=== PATIENT | male | born 1965 | race American Indian/Alaskan Native ===

== ENCOUNTER 2016-12-09 22:11 | Emergency (ER) | payer MEDICAID ==
[2016-12-09 22:58] LABS: Basophils % (Auto) 0.8 % (0.0-1.8); Hematocrit 46.1 % (35.5-45.6); Hemoglobin 15.2 gm/dl (11.8-15.2); Mean Corpuscular HGB Conc 33 % (32-34); Mean Corpuscular Hemoglobin 30 pg (28-32); Mean Corpuscular Volume 92 fl (84-94); Platelet Count 292 K/mm3 (140-440); Red Blood Count 4.99 M/mm3 (3.65-5.03); Red Cell Distribution Width 13.4 % (13.2-15.2); White Blood Count 12.7 K/mm3 (4.5-11.0)
[2016-12-09 23:04] LABS: Bilirubin,Urine NEG (Negative); Blood,Urine NEG (Negative); Ketones,Urine NEG (Negative); Leukocyte Esterase,Urine NEG (Negative); Mucus,Urine FEW /HPF; Nitrite,Urine NEG (Negative); Protein,Urine <15 mg/dL mg/dL (Negative); Urobilinogen,Urine < 2.0 mg/dL (<2.0); WBC,Urine < 1.0 /HPF (0.0-6.0)
[2016-12-09] MEDS ORDERED: REGLAN IV ONE (23:14)
[2016-12-09] MEDS ORDERED: ZOFRAN IV ONE (23:14)
[2016-12-09] MEDS ORDERED: NACL 0.9% 1000 ML 1,000 ML IV ONE (23:14)
[2016-12-09 23:18] LABS: Anion Gap 19 mmol/L; BUN/Creatinine Ratio 13.75; Blood Urea Nitrogen 11 mg/dL (9-20); Calcium 8.6 mg/dL (8.4-10.2); Carbon Dioxide 23 mmol/L (22-30); Chloride 101.3 mmol/L (98-107); Glucose 95 mg/dL (75-100); Potassium 3.9 mmol/L (3.6-5.0); Sodium 139 mmol/L (137-145)
--- NOTE | 2016-12-09 23:34 | Emergency Department Report ---
ED N/V/D HPI - General Chief complaint: Nausea/Vomiting/Diarrhea Stated complaint: N/V/D X 3 DAYS Time Seen by Provider: 12/09/16 23:14 Source: patient, family, EMS Mode of arrival: Stretcher Limitations: Physical Limitation - History of Present Illness MD complaint: nausea, vomiting, abdominal pain -: Gradual Description of Vomiting: food contents, watery, bilious Associated Abdominal Pain: Yes Location: diffuse Radiation: none Severity: moderate Pain Scale: 5 Quality: cramping Consistency: intermittent Improves with: none Worsens with: none Context: possible food poisoning Associated Symptoms: nausea/vomiting. denies: myalgias, chest pain, cough, diaphoresis, fever/chills, headaches, loss of appetite, malaise, rash, dysuria, shortness of breath, syncope - Related Data Previous Rx's Medication Instructions Recorded Last Taken Type Ondansetron [Zofran ODT TAB] 8 mg PO Q8HR #20 tab.rapdis 12/10/16 Unknown Rx Allergies Allergy/AdvReac Type Severity Reaction Status Date / Time No Known Allergies Allergy Verified 01/20/16 16:24 ED Review of Systems ROS: Stated complaint: N/V/D X 3 DAYS Other details as noted in HPI Comment: All other systems reviewed and negative ED Past Medical Hx - Past Medical History Hx CVA: Yes (2012, no meds) Hx Heart Attack/AMI: Yes Hx GERD: Yes Additional medical history: benign lung mass, NSTEMI - Surgical History Hx Cholecystectomy: Yes Additional Surgical History: collar bone surgery,right hand surgery - Social History Smoking Status: Never Smoker Substance Use Type: None - Medications Home Medications: Home Medications Medication Instructions Recorded Confirmed Last Taken Type Ondansetron [Zofran ODT TAB] 8 mg PO Q8HR #20 tab.rapdis 12/10/16 Unknown Rx ED Physical Exam - General Limitations: Physical Limitation General appearance: alert, in no apparent distress - Head Head exam: Present: atraumatic, normocephalic - Eye Eye exam: Present: normal appearance - ENT ENT exam: Present: mucous membranes moist - Neck Neck exam: Present: normal inspection - Respiratory Respiratory exam: Present: normal lung sounds bilaterally. Absent: respiratory distress - Cardiovascular Cardiovascular Exam: Present: regular rate, normal rhythm. Absent: systolic murmur, diastolic murmur, rubs, gallop - GI/Abdominal GI/Abdominal exam: Present: soft, tenderness, normal bowel sounds. Absent: distended, guarding, rebound - Rectal Rectal exam: Present: deferred - Extremities Exam Extremities exam: Present: normal inspection - Back Exam Back exam: Present: normal inspection - Neurological Exam Neurological exam: Present: alert, oriented X3 - Psychiatric Psychiatric exam: Present: normal affect, normal mood - Skin Skin exam: Present: warm, dry, intact, normal color. Absent: rash ED Course Vital Signs 12/09/16 12/09/16 22:26 22:43 Temperature 97.5 F L Pulse Rate 81 Respiratory 18 18 Rate Blood Pressure 140/96 [Left] O2 Sat by Pulse 18 L 99 Oximetry ED Medical Decision Making - Lab Data Result diagrams: 12/09/16 22:40 12/09/16 22:40 - Medical Decision Making Patient doing well, tolerating po here in the er, labs negative except for mild elevation of lipase , he admits to drinking beer also, he had GB removed years ago, Reexamination of his abdomen shows no tenderness, no guarding , no rebound Critical care attestation.: If time is entered above; I have spent that time in minutes in the direct care of this critically ill patient, excluding procedure time. ED Disposition Clinical Impression: Vomiting, Pancreatitis Disposition: DISCHARGED TO HOME OR SELFCARE Is pt being admited?: No Does the pt Need Aspirin: No Condition: Good Instructions: Pancreatitis (ED), Acute Nausea and Vomiting (ED) Prescriptions: Ondansetron [Zofran ODT TAB] 8 mg PO Q8HR #20 tab.rapdis Referrals: PRIMARY CARE, [Primary Care Provider] - 3-5 Days Time of Disposition: :
[2016-12-10 01:31] VITALS: BP 136/86
--- NOTE | 2016-12-10 09:47 | XRay Report ---
ABDOMEN TWO VIEWS: 12/09/16 23:15:00 CLINICAL: Vomiting and diarrhea. COMPARISON:01/14/13 FINDINGS: Supine upright views demonstrate a normal bowel gas pattern. Moderate stool in the colon. No distended small bowel and no air-fluid levels. No pneumoperitoneum. No mass or suspicious calcifications. Surgical clips in the right upper quadrant. Bilateral SI joint sclerosis. IMPRESSION: Negative abdomen. Bilateral sacroiliitis.
== END 2016-12-10 01:31 | disposition home or self-care (01) ==
LOC: ED 22:11
DX: K85.90 Acute pancreatitis without necrosis or infection, unspecified (principal); R11.2 Nausea with vomiting, unspecified; I25.2 Old myocardial infarction; K21.9 Gastro-esophageal reflux disease without esophagitis; R91.8 Other nonspecific abnormal finding of lung field; Z86.73 Personal history of transient ischemic attack (TIA), and cerebral infarction without residual deficits
CPT/HCPCS: 36415; 74020; 80048; 81001; 83690; 85025; 96361; 96374; 96375; 99284; J2405; J2765; J7030

== ENCOUNTER 2017-04-02 22:15 | Emergency (ER) | payer MEDICAID ==
--- NOTE | 2017-04-02 23:11 | XRay Report ---
FINAL REPORT PROCEDURE: XR CHEST ROUTINE 2V TECHNIQUE: PA and lateral chest radiographs were obtained. CPT 34868 HISTORY: left sided rib pain COMPARISON: No prior studies are available for comparison. FINDINGS: Heart: Mild cardiomegaly. Mediastinum/Vessels: Normal. Lungs/Pleural space: Normal. Bony thorax: No acute osseous abnormality. Other: IMPRESSION: No acute pulmonary process. Mild cardiomegaly.
[2017-04-02 23:50] LABS: Basophils % (Auto) 0.5 % (0.0-1.8); Eosinophils % (Auto) 1.7 % (0.0-4.3); Hematocrit 42.8 % (35.5-45.6); Hemoglobin 14.6 gm/dl (11.8-15.2); Mean Corpuscular HGB Conc 34 % (32-34); Mean Corpuscular Hemoglobin 32 pg (28-32); Mean Corpuscular Volume 94 fl (84-94); Platelet Count 309 K/mm3 (140-440); Red Blood Count 4.56 M/mm3 (3.65-5.03); Red Cell Distribution Width 13.1 % (13.2-15.2); White Blood Count 17.5 K/mm3 (4.5-11.0)
[2017-04-02 23:56] LABS: Bilirubin,Urine NEG (Negative); Blood,Urine NEG (Negative); Ketones,Urine NEG (Negative); Leukocyte Esterase,Urine NEG (Negative); Mucus,Urine 3+ /HPF; Nitrite,Urine NEG (Negative)
[2017-04-03 00:10] LABS: Anion Gap 19 mmol/L; BUN/Creatinine Ratio 17.77; Blood Urea Nitrogen 16 mg/dL (9-20); Calcium 8.6 mg/dL (8.4-10.2); Carbon Dioxide 23 mmol/L (22-30); Chloride 99.2 mmol/L (98-107); Glucose 94 mg/dL (75-100); Potassium 3.9 mmol/L (3.6-5.0); Sodium 137 mmol/L (137-145)
[2017-04-03 00:17] LABS: INR 1.01 (0.87-1.13)
[2017-04-03 00:18] LABS: Partial Thromboplastin Time 29.7 Sec. (24.2-36.6)
[2017-04-03] MEDS ORDERED: TORADOL IM ONE (02:39)
[2017-04-03] MEDS ORDERED: AUGMENTIN 875 MG PO ONE (02:40)
--- NOTE | 2017-04-03 02:47 | Emergency Department Report ---
HPI - General Chief Complaint: Sore Throat Time Seen by Provider: 04/03/17 02:16 - HPI HPI: This is a 52-year-old Afro[place] male presents emergency Department with complaint of a one-week history of a sore throat. He denies any drooling, trismus and is able to eat and drink but has some pain with doing so. He tried some Motrin 800 mg for his symptoms with some transient relief. He also complains of some other body aches including his bilateral hips and the sides of his rib cage. He denies any chest pain, shortness of breath or any obvious fever. He has a past medical history of atrial fibrillation, CVA, GERD, coronary artery disease, hypertension. He does not have a primary care physician. No recent travel or sick contacts at home. ED Past Medical Hx - Past Medical History Previous Medical History?: Yes Hx Hypertension: Yes Hx CVA: Yes (2012, no meds) Hx Heart Attack/AMI: Yes Hx GERD: Yes Additional medical history: enlarged prostate, benign lung mass, NSTEMI - Surgical History Past Surgical History?: Yes Hx Cholecystectomy: Yes Additional Surgical History: collar bone surgery,right hand surgery - Social History Smoking Status: Former Smoker - Medications Home Medications: Home Medications Medication Instructions Recorded Confirmed Last Taken Type Ondansetron [Zofran ODT TAB] 8 mg PO Q8HR #20 tab.rapdis 12/10/16 Unknown Rx Amoxicillin/K Clav Tab [Augmentin 1 each PO BID #20 tablet 04/03/17 Unknown Rx 875MG TAB] Apixaban [Eliquis] 5 mg PO BID #60 tablet 04/03/17 Unknown Rx HYDROcodone/APAP 5-325 [Redding 1 each PO Q6HR PRN #10 tablet 04/03/17 Unknown Rx 5/325] ED Review of Systems ROS: Stated complaint: SORE THROAT/LEFT SIDE RIB PAIN Other details as noted in HPI Comment: All other systems reviewed and negative Constitutional: denies: diaphoresis, weakness Eyes: denies: eye pain, eye discharge, vision change ENT: throat pain. denies: ear pain Respiratory: denies: cough, shortness of breath Cardiovascular: denies: chest pain, palpitations Gastrointestinal: denies: abdominal pain, nausea, diarrhea Genitourinary: denies: urgency, dysuria Musculoskeletal: arthralgia Skin: denies: rash, lesions Neurological: denies: headache, weakness, paresthesias Physical Exam - Physical Exam Vital Signs: Vital Signs 04/02/17 22:26 Temperature 98.7 F Pulse Rate 62 Respiratory 18 Rate Blood Pressure 145/94 O2 Sat by Pulse 100 Oximetry Physical Exam: GENERAL: The patient is well-developed well-nourished. HEENT: Normocephalic. Atraumatic. Extraocular motions are intact. Patient has moist mucous membranes. Pupils equal reactive to light bilaterally. Oropharynx shows some mild tonsillar hypertrophy and hypervascularity but there is no obvious exudates. No drooling or trismus. NECK: Supple. Trachea is midline. CHEST/LUNGS: Clear to auscultation. There is no respiratory distress noted. HEART/CARDIOVASCULAR: Irregularly irregular ABDOMEN: Abdomen is soft, nontender. Patient has normal bowel sounds. There is no abdominal distention. SKIN: Skin is warm and dry. NEURO: The patient is awake, alert, and oriented. The patient is cooperative. The patient has no focal neurologic deficits. The patient has normal speech. Cranial nerves II through XII grossly intact. MUSCULOSKELETAL: There is no tenderness or deformity. There is no limitation range of motion. There is no evidence of acute injury. ED Course Vital Signs 04/02/17 22:26 Temperature 98.7 F Pulse Rate 62 Respiratory 18 Rate Blood Pressure 145/94 O2 Sat by Pulse 100 Oximetry ED Medical Decision Making - Lab Data Result diagrams: 04/02/17 22:46 04/02/17 22:46 - EKG Data -: EKG Interpreted by Me - EKG Data When compared to previous EKG there are: no significant change Interpretation: unchanged when compared t (05/26/16), other (atrial fibrillation , rate of 70 bpm, Q waves to the inferior and anterior leads) - Radiology Data Radiology results: image reviewed interpreted by me: Chest x-ray did not show any acute process. Heart is normal shape and size. No effusions. No pneumothorax. No signs of pneumonia seen. - Medical Decision Making 52-year-old male presents the emergency department with complaint of a sore throat. He has positive rapid strep test. Patient also complained of some lateral rib cage pain and therefore had an EKG, chest x-ray and a troponin. EKG did not show any signs of ST elevation CA, ischemia or dysrhythmia. Chest x -ray did not show any acute process. Troponin was negative. The patient did have a leukocytosis of about 17,000 but the patient was positive for strep pharyngitis. Since the patient drove himself in to be seen and is driving home, he was given a shot of Toradol for discomfort. He was given the first dose of Augmentin here. He will follow-up with his primary care doctor and will return to the ER with any worsening of symptoms or any acute distress. The patient has a history of atrial fibrillation and it is chronic and he remains in it now. However he had stopped taking his blood thinner, although he cannot read which one it was. He was low suspicion for a pulmonary embolism as he does not have any hypoxia, tachycardia or any chest pain and even the lateral rib pain has resolved at this point. But I restarted him on Eloquist. - Differential Diagnosis strep pharyngitis, viral syndrome, costochondritis, CA Critical Care Time: No Critical care attestation.: If time is entered above; I have spent that time in minutes in the direct care of this critically ill patient, excluding procedure time. ED Disposition Clinical Impression: Strep pharyngitis, Body aches Atrial fibrillation Qualifiers: Atrial fibrillation type: chronic Qualified Code(s): I48.2 - Chronic atrial fibrillation Disposition: TO HOME OR SELFCARE Is pt being admited?: No Condition: Stable Instructions: Atrial Fibrillation (ED), Strep Throat (ED), Arthralgia (ED) Additional Instructions: Please follow-up with a primary care physician in the next few days. Return to the emergency department with any worsening of your symptoms or any acute distress. I have restarted you on a blood thinner for your atrial fibrillation. I started you on an antibiotics to be taken for your strep pharyngitis. You've been prescribed a medication that is sedating. Therefore this medication cannot be mixed with alcohol, or taken prior to driving, working, or being responsible for children. Prescriptions: Amoxicillin/K Clav Tab [Augmentin 875MG TAB] 1 each PO BID #20 tablet Apixaban [Eliquis] 5 mg PO BID #60 tablet HYDROcodone/APAP 5-325 [Redding 5/325] 1 each PO Q6HR PRN #10 tablet PRN Reason: Pain Referrals: PRIMARY CARE, [Primary Care Provider] - 3-5 Days DAYAMI MARCELO MD [Staff Physician] - 3-5 Days [facility] [Outside] - 3-5 Days [facility] [Outside] - 3-5 Days Time of Disposition: 02:47
[2017-04-03 02:54] VITALS: BP 133/95
== END 2017-04-03 03:15 | disposition home or self-care (01) ==
LOC: ED 22:15
DX: I48.91 Unspecified atrial fibrillation (principal); J02.0 Streptococcal pharyngitis; M25.552 Pain in left hip; M25.551 Pain in right hip; I10 Essential (primary) hypertension; I25.2 Old myocardial infarction; K21.9 Gastro-esophageal reflux disease without esophagitis; Z86.73 Personal history of transient ischemic attack (TIA), and cerebral infarction without residual deficits; Z87.891 Personal history of nicotine dependence
CPT/HCPCS: 36415; 71020; 80048; 81001; 84484; 85025; 85610; 85730; 87430; 93005; 93010; 96372; 99285; J1885

== ENCOUNTER 2017-09-26 22:32 | Emergency (ER) | payer MEDICAID ==
[2017-09-27] MEDS ORDERED: MOTRIN PO ONE (01:46)
[2017-09-27 02:27] LABS: Basophils # (Auto) 0.2 K/mm3 (0.0-0.1); Basophils % (Auto) 1.2 % (0.0-1.8); Eosinophils # (Auto) 0.3 K/mm3 (0.0-0.4); Eosinophils % (Auto) 2.4 % (0.0-4.3); Hematocrit 44.1 % (35.5-45.6); Hemoglobin 14.9 gm/dl (11.8-15.2); Lymphocytes # (Auto) 4.3 K/mm3 (1.2-5.4); Lymphocytes % (Auto) 31.3 % (13.4-35.0); Mean Corpuscular HGB Conc 34 % (32-34); Mean Corpuscular Hemoglobin 31 pg (28-32); Mean Corpuscular Volume 93 fl (84-94); Monocytes # (Auto) 0.9 K/mm3 (0.0-0.8); Monocytes % (Auto) 6.3 % (0.0-7.3); Platelet Count 302 K/mm3 (140-440); Red Blood Count 4.77 M/mm3 (3.65-5.03); Red Cell Distribution Width 13.7 % (13.2-15.2)
[2017-09-27 02:46] LABS: Alanine Aminotransferase 17 units/L (7-56); Albumin 3.7 g/dL (3.9-5); BUN/Creatinine Ratio 20; Blood Urea Nitrogen 16 mg/dL (9-20); Calcium 8.7 mg/dL (8.4-10.2); Hemolysis Index 10; Lipase 32 units/L (13-60)
[2017-09-27 03:15] LABS: Bilirubin,Urine NEG (Negative); Blood,Urine NEG (Negative); Color,Urine Red (Yellow); Hyaline Casts,Urine 1 /LPF; Nitrite,Urine NEG (Negative); Protein,Urine <15 mg/dL mg/dL (Negative); Urobilinogen,Urine < 2.0 mg/dL (<2.0); WBC,Urine < 1.0 /HPF (0.0-6.0)
[2017-09-27] MEDS ORDERED: NORCO 5/325 PO ONE (11:18)
--- NOTE | 2017-09-27 12:27 | Emergency Department Report ---
HPI - General Chief Complaint: Abdominal Pain Time Seen by Provider: 09/27/17 10:40 - HPI HPI: The patient is a 52-year-old male with a history of cholecystectomy, whom presents for evaluation of right flank pain and abdominal pain. The patient reports 2 weeks of right flank pain, moderate in severity, sharp in quality, exacerbated with movement, associated with left lower quadrant abdominal pain. He shares his experience similar symptoms within the past 2 years without receiving definitive diagnosis despite multiple ED workups. He has secondary complaint of soreness of the throat also for 2 weeks, burning in quality, moderate to severe, exacerbated with lying flat at night. ED Past Medical Hx - Past Medical History Hx Hypertension: Yes Hx CVA: Yes (2013, no meds) Hx Heart Attack/AMI: Yes Hx GERD: Yes Additional medical history: enlarged prostate, benign lung mass, NSTEMI - Surgical History Hx Cholecystectomy: Yes Additional Surgical History: collar bone surgery,right hand surgery - Social History Smoking Status: Current Every Day Smoker Substance Use Type: None - Medications Home Medications: Home Medications Medication Instructions Recorded Confirmed Last Taken Type Ondansetron [Zofran ODT TAB] 8 mg PO Q8HR #20 tab.rapdis 12/10/16 Unknown Rx Amoxicillin/K Clav Tab [Augmentin 1 each PO BID #20 tablet 04/03/17 Unknown Rx 875MG TAB] Apixaban [Eliquis] 5 mg PO BID #60 tablet 04/03/17 Unknown Rx HYDROcodone/APAP 5-325 [Beaver 1 each PO Q6HR PRN #10 tablet 04/03/17 Unknown Rx 5/325] Omeprazole Magnesium [PriLOSEC Otc] 20 mg PO QDAY #14 tablet. 09/27/17 Unknown Rx traMADol [Ultram 50 MG tab] 50 mg PO Q6HR PRN #15 tablet 09/27/17 Unknown Rx ED Review of Systems ROS: Stated complaint: URI SX; RT FLANK PAIN Other details as noted in HPI Constitutional: denies: fever ENT: denies: throat or neck pain Respiratory: denies: cough, shortness of breath Cardiovascular: denies: chest pain Endocrine: denies unexplained weight loss or gain Gastrointestinal: reports: abdominal pain, nausea Genitourinary: reports left flank pain denies: dysuria Musculoskeletal: denies: leg swelling Skin: denies: rash Neurological: denies: headache Hematological/Lymphatic: denies: easy bleeding or easy bruising Psych: denies sadness or hopelessness Physical Exam - Physical Exam Vital Signs: Vital Signs 09/27/17 09/27/17 09/27/17 01:01 01:38 07:49 Temperature 98.2 F 98.2 F 97.8 F Pulse Rate 80 80 85 Respiratory 16 16 16 Rate Blood Pressure 135/92 135/92 Blood Pressure 134/95 [Right] O2 Sat by Pulse 98 98 97 Oximetry 09/27/17 09/27/17 09/27/17 10:37 10:51 11:55 Temperature 97.7 F Pulse Rate 74 Respiratory 18 20 Rate Blood Pressure Blood Pressure 129/86 [Right] O2 Sat by Pulse 98 98 Oximetry Physical Exam: General: well-nourished, well-developed, no acute distress Head: Normocephalic, atraumatic Eyes: normal sclera ENT: Mucous membranes are pink and moist Neck: trachea midline, neck supple, No neck stiffness, no cervical adenopathy Respiratory: Breath sounds equal bilaterally, no wheezing, rales, or rhonchi Cardio: S1 and S2 present, no murmurs, rubs, gallops, capillary refill is brisk Abdomen: Normoactive bowel sounds, soft abdomen, left lower quadrant TTP, no rigidity, no guarding or rebound tenderness Chest WALL/Back: No tenderness to palpation of the chest wall, left flank CVA tenderness with percussion present Musc: No pitting edema Skin: No rash Neuro: no facial drooping, normal speech Psych: Normal affect ED Course Vital Signs 09/27/17 09/27/17 09/27/17 01:01 01:38 07:49 Temperature 98.2 F 98.2 F 97.8 F Pulse Rate 80 80 85 Respiratory 16 16 16 Rate Blood Pressure 135/92 135/92 Blood Pressure 134/95 [Right] O2 Sat by Pulse 98 98 97 Oximetry 09/27/17 09/27/17 09/27/17 10:37 10:51 11:55 Temperature 97.7 F Pulse Rate 74 Respiratory 18 20 Rate Blood Pressure Blood Pressure 129/86 [Right] O2 Sat by Pulse 98 98 Oximetry ED Medical Decision Making - Lab Data Result diagrams: 09/27/17 01:56 09/27/17 01:56 - Medical Decision Making The patient was seen and examined by myself. The patient is placed on a lunchroom monitor and continuous pulse ox. On initial evaluation, the patient was found to be in no distress. Evaluation orders are placed. The patient is given a tablet of Motrin and Beaver for his pain. Lab results exhibited mildly elevated WBC of 13, and otherwise labs were unremarkable including hemoglobin, hematocrit, electrolytes, renal function, LFTs, lipase, and urinalysis. CT scan of the abdomen and pelvis were negative for ureterolithiasis, appendicitis, bowel obstruction, or abscess. The patient was reevaluated and reported that their symptoms were markedly improved. The patient is stable for discharge with outpatient follow-up. The patient is given follow-up and return instructions. The patient expressed understanding and agreed with the plan. The patient is discharged in stable condition. Critical care attestation.: If time is entered above; I have spent that time in minutes in the direct care of this critically ill patient, excluding procedure time. ED Disposition Clinical Impression: Acute right flank pain, Acute left lower quadrant pain Acute pharyngitis, unspecified Qualifiers: Pharyngitis/tonsillitis etiology: unspecified etiology Qualified Code(s): J02.9 - Acute pharyngitis, unspecified Disposition: DC-01 TO HOME OR SELFCARE Is pt being admited?: No Does the pt Need Aspirin: No Condition: Stable Instructions: Pharyngitis (ED), Acute Abdominal Pain (ED), Flank Pain (ED) Referrals: DONNIE NICE MD [Primary Care Provider] - 3-5 Days Time of Disposition: 12:52
--- NOTE | 2017-09-27 13:04 | Cat Scan Report ---
CT ABDOMEN PELVIS WITHOUT CONTRAST: HISTORY: Right flank pain, left lower quadrant abdominal pain. COMPARISON: none. TECHNIQUE: Helical CT in 1.25mm intervals without IV contrast. Sagittal and coronal reconstructions. FINDINGS: Lung bases: Normal. Liver: Normal. Biliary system: Cholecystectomy. No biliary dilatation. Pancreas: Normal. Spleen: Normal. Kidneys/ureters/bladder: Normal. Adrenal glands: Normal. Aorta: Normal. Intestines: Normal. Appendix: Normal. Pelvic viscera: Normal. Ascites: None. Adenopathy: None. Musculoskeletal: Normal. IMPRESSION: Unremarkable CT scan of the abdomen and pelvis without contrast.
[2017-09-27 14:21] VITALS: BP 107/58
== END 2017-09-27 15:00 | disposition home or self-care (01) ==
LOC: ED 23:00
DX: R10.32 Left lower quadrant pain (principal); J02.9 Acute pharyngitis, unspecified; I10 Essential (primary) hypertension; K21.9 Gastro-esophageal reflux disease without esophagitis; Z90.49 Acquired absence of other specified parts of digestive tract; F17.200 Nicotine dependence, unspecified, uncomplicated
CPT/HCPCS: 36415; 74176; 80053; 81001; 83690; 85025; 87116; 87430